=== PATIENT | male | born 1990 | race Caucasian/White ===

== ENCOUNTER 2016-11-19 10:24 | Emergency (ER) | payer MEDICAID ==
[~2016-11-19] VITALS: Ht 177.8 cm; Wt 67.1 kg
[2016-11-19 10:26] VITALS: BP 121/82
[2016-11-19] MEDS ORDERED: FLUORESCEIN OPHTHALMIC 1 MG STRIP ONE (11:07)
== END 2016-11-19 11:48 | disposition home or self-care (01) ==
LOC: ED 11:30
DX: H10.32 Unspecified acute conjunctivitis, left eye (principal); L03.213 Periorbital cellulitis
CPT/HCPCS: 99283